=== PATIENT | female | born 1955 | race Caucasian/White ===

== ENCOUNTER → 2021-08-31 15:03 | Outpatient (BNVA) | payer OTHER, SELFPAY | PROVIDERS: PCP Internal Medicine; Visit Provider Internal Medicine ==

== ENCOUNTER 2021-09-17 18:02 | Outpatient (REF) | payer OTHER, SELFPAY ==
--- NOTE | ~2021-09-17 | MR_ITS ---
EXAMINATION: MR CERVICAL SPINE WITHOUT CONTRAST MR THORACIC SPINE WITHOUT CONTRAST CLINICAL INFORMATION: Neck pain. Tingling in arms and hands. Mid back tingling. COMPARISON: None. TECHNIQUE: Multiplanar, multisequential imaging of the cervical and thoracic spine was performed without contrast. FINDINGS: CERVICAL SPINE: Vertebral Bodies And Paraspinal Soft Tissues: The marrow signal is fairly homogeneous. A mild anterolisthesis is evident at C3-C4. There are mild right lateralized edematous endplate changes and moderate disc space narrowing with a mild anterolisthesis at the C4-C5 level. There are no compression fractures. Mixed chronic and edematous endplate changes with severe disc space narrowing and a retrosubluxation noted at the C6-C7 level. There is a retrosubluxation and severe disc space narrowing at the C5-C6 level. The vertebral artery flow-voids are maintained. The lung apices are clear. The paraspinal soft tissues appear normal. Cervicomedullary Junction And Visualized Posterior Fossa: The craniovertebral junction and imaged portions of the brain parenchyma are normal. No cord signal abnormality or syrinx is seen. Spinal Levels: C2-C3: Very small central disc protrusion without central canal stenosis or foraminal narrowing. Ankylosis and hypertrophy of the left facet joint. C3-C4: Mild anterolisthesis and disc bulge with severe facet arthropathy. No central canal stenosis. Moderate to severe bilateral foraminal narrowing. C4-C5: Moderate loss of disc height and mild anterior subluxation with a broad-based posterior disc bulge and advanced left-sided facet arthropathy. Mild central canal stenosis and moderate right and severe left foraminal narrowing. C5-C6: Severe disc space narrowing and retrosubluxation with mild central canal stenosis and severe right foraminal narrowing. Moderate left foraminal encroachment evident. C6-C7: Severe disc space narrowing and posterior disc bulge without central canal stenosis. Severe left foraminal encroachment. [id number] right foraminal narrowing with mild edematous endplate changes. C7-T1: Minimal disc bulge and mild anterior subluxation with moderate to severe facet arthropathy, worse on the right side, with reactive edema in the right articular processes. No central canal stenosis. Mild foraminal narrowing. THORACIC SPINE: There are mild chronic superior endplate compression fractures at the T12 and L1 levels without bony retropulsion. No marrow or soft tissue edema visible. A retrosubluxation is visible at the L1-L2 level with mild disc space narrowing. No cord signal abnormality or syrinx is seen. There is no central canal stenosis. There is mild central canal stenosis with facet arthropathy at the L1-L2 level where there is a posterior disc bulge and significant foraminal encroachment. No intradural, extramedullary or epidural soft tissue abnormality is seen. The neural foramina are patent. Mild thoracic kyphosis evident. Subsegmental atelectatic changes visible in the lungs. The paraspinal soft tissues are unremarkable. MR/MR thoracic spine wo con IMPRESSION: CERVICAL SPINE: Moderate multilevel cervical spondylosis with significant facet arthropathy, degenerative subluxations, and moderate to severe foraminal narrowing. Mild central canal stenosis at the C4-C5 and C5-C6 levels. THORACIC SPINE: Chronic mild superior endplate compression fractures at the T12 and L1 levels. Mild thoracic kyphosis. No focal disc protrusion or cord abnormality. No central canal stenosis.
== END 2021-09-17 18:03 | disposition home or self-care (01) ==
LOC: HO.MRI 18:02
PROVIDERS: Visit Provider Internal Medicine
DX: M54.14 Radiculopathy, thoracic region (principal); M54.12 Radiculopathy, cervical region; M46.92 Unspecified inflammatory spondylopathy, cervical region
CPT/HCPCS: 72141; 72146

== ENCOUNTER → 2021-09-28 10:20 | Outpatient (BNVA) | payer OTHER, SELFPAY | PROVIDERS: PCP Internal Medicine; Visit Provider Internal Medicine | DX: M46.92 Unspecified inflammatory spondylopathy, cervical region (principal); M54.12 Radiculopathy, cervical region; Z79.899 Other long term (current) drug therapy | CPT/HCPCS: 99212 ==